=== PATIENT | female | born 1970 | race Caucasian/White ===

== ENCOUNTER 2019-03-25 06:45 | Emergency (ER) | payer SELFPAY ==
[~2019-03-25] VITALS: Ht 149.9 cm; Wt 56.7 kg
[2019-03-25 06:50] VITALS: Ht 149.9 cm; Wt 56.7 kg
[2019-03-25 10:55] VITALS: BP 116/90
== END 2019-03-25 10:57 | disposition other institution (70) ==
LOC: ED 06:45
DX: S00.93XA Contusion of unspecified part of head, initial encounter (principal); S00.531A Contusion of lip, initial encounter; Y04.8XXA Assault by other bodily force, initial encounter; Y93.89 Activity, other specified; Y92.89 Other specified places as the place of occurrence of the external cause; Y99.8 Other external cause status

== ENCOUNTER 2019-03-25 06:45 | Emergency (ER) | payer OTHER | END 2019-03-25 10:57 | disposition other institution (70) | LOC: ED 06:45 | DX: Z02.89 Encounter for other administrative examinations (principal) ==